=== PATIENT | female | born 1960 | race Caucasian/White ===

== ENCOUNTER 2017-10-27 22:48 | Emergency (ER) | payer SELFPAY ==
[2017-10-28] MEDS ORDERED: NORMAL SALINE 1000 ML 1,000 ML IV ONE
[2017-10-28] MEDS ORDERED: LORAZEPAM 0.5 MG TABLET PO ONE
--- NOTE | 2017-10-28 00:03 | ER Document Report ---
ED General - General Chief Complaint: Chest Pain Stated Complaint: HEART RACING Time Seen by Provider: 10/27/17 23:48 Mode of Arrival: Ambulatory Information source: Patient, Relative, [facility] Records Notes: 57-year-old female with emphysema, osteoporosis presents with complaint of palpitations that started 22 hours prior to arrival. Patient states that she has not slept in approximately 48 hours. She states that she realized at 1 AM that she was still up and needs to be at work in 4 hours so she remained awake. She states this evening when she tried to go to bed she felt very anxious, paranoid and felt her heart racing. She denies any associated headache, blurred vision, slurred speech, chest pain. Patient admits to shortness of breath and nonproductive cough which is chronic for her and not worse than her baseline. She denies any recent illness, new medications. Patient does have a 40 year pack history but denies any alcohol or drug abuse. Patient denies recent travel, estrogen use, recent surgery, history of DVT or PE. TRAVEL OUTSIDE OF THE [place] IN LAST 30 DAYS: No - HPI Onset: Yesterday Onset/Duration: Sudden Quality of pain: No pain Associated symptoms: Nonproductive cough. denies: Body/muscle aches, Chest pain , Fever, Hurts to breath, Nausea, Vomiting, Shortness of breath Exacerbated by: Denies Relieved by: Denies Similar symptoms previously: No Recently seen / treated by doctor: No - Related Data Allergies/Adverse Reactions: No Known Allergies Allergy (Verified 01/13/15 12:42) Past Medical History - General Information source: Patient, [facility] Records - Social History Smoking Status: Current Every Day Smoker Cigarette use (# per day): Yes - 20 Chew tobacco use (# tins/day): No Smoking Education Provided: Yes - Patient was provided for maintenance of counseling for smoking cessation. Frequency of alcohol use: None Drug Abuse: None Lives with: Alone Family History: Reviewed & Not Pertinent Patient has suicidal ideation: No Patient has homicidal ideation: No Pulmonary Medical History: Reports: Hx COPD Renal/ Medical History: Denies: Hx Peritoneal Dialysis Musculoskeletal Medical History: Reports Hx Arthritis - osteoporosis Past Surgical History: Reports: Hx Tubal Ligation - Immunizations Hx Diphtheria, Pertussis, Tetanus Vaccination: Yes Review of Systems - Review of Systems Notes: REVIEW OF SYSTEMS: CONSTITUTIONAL : Denies fever, chills, or sweats. Denies recent illness. Denies weight loss, recent hospitalizations. EENT: Denies visual changes, eye pain. Denies nasal or sinus congestion or discharge. Denies sore throat, oral lesions, difficulty swallowing. CARDIOVASCULAR: Denies chest pain. Denies lower extremity edema. RESPIRATORY: Denies cough, cold, or chest congestion. Denies shortness of breath, wheezing. GASTROINTESTINAL: Denies abdominal pain or distention. Denies nausea, vomiting , or diarrhea. Denies blood in vomitus, stools, or per rectum. Denies black, tarry stools. Denies constipation. GENITOURINARY: Denies difficulty urinating, painful urination, frequency, blood in urine, or vaginal discharge. MUSCULOSKELETAL: Denies back or neck pain or stiffness. Denies joint pain or swelling. SKIN: Denies rash, lesions or sores. HEMATOLOGIC : Denies easy bruising or bleeding. LYMPHATIC: Denies swollen glands. NEUROLOGICAL: Denies confusion or altered mental status. Denies passing out or loss of consciousness. Denies dizziness or lightheadedness. Denies headache. Denies weakness or paralysis. Denies problems difficulty with ambulation, slurred speech. Denies sensory loss, numbness, or tingling. Denies seizures. PSYCHIATRIC: Denies anxiety or stress. Denies depression, suicidal ideation, or homicidal ideation. Denies visual or auditory hallucinations. Physical Exam - Vital signs Vitals: Temp Pulse Resp BP Pulse Ox 97.7 F 104 H 18 129/82 H 94 10/27/17 23:00 10/27/17 23:00 10/27/17 23:00 10/27/17 23:00 10/27/17 23:00 - Notes Notes: PHYSICAL EXAMINATION: GENERAL: Well-appearing, well-nourished and in no acute distress. HEAD: Atraumatic, normocephalic. EYES: Pupils equal round and reactive to light, extraocular movements intact, conjunctiva are normal. ENT: Nares patent, oropharynx clear without exudates. Moist mucous membranes. NECK: Normal range of motion, supple without lymphadenopathy LUNGS: Breath sounds clear to auscultation bilaterally and equal. No wheezes rales or rhonchi. HEART: Regular rate and rhythm without murmurs ABDOMEN: Soft, nontender, nondistended abdomen. No guarding, no rebound. No masses appreciated. Female : deferred Musculoskeletal: Normal range of motion, no pitting or edema. No cyanosis. NEUROLOGICAL: Cranial nerves grossly intact. Normal speech, normal gait. Normal sensory, motor exams PSYCH: Normal mood, normal affect. SKIN: Warm, Dry, normal turgor, no rashes or lesions noted. Course - Re-evaluation Re-evalutation: 10/28/17 01:22 Laboratory 10/28/17 10/28/17 10/28/17 00:26 00:26 00:26 WBC 10.3 RBC 5.61 H Hgb 16.2 H Hct 47.7 H MCV 85 MCH 28.9 MCHC 34.0 RDW 13.8 Plt Count 195 Seg Neutrophils % 76.6 Lymphocytes % 16.8 Monocytes % 5.6 Eosinophils % 0.7 Basophils % 0.3 Absolute Neutrophils 7.9 Absolute Lymphocytes 1.7 Absolute Monocytes 0.6 Absolute Eosinophils 0.1 Absolute Basophils 0.0 D-Dimer 0.37 Sodium 146.4 H Potassium 3.9 Chloride 107 Carbon Dioxide 27 Anion Gap 12 BUN 10 Creatinine 0.71 Est GFR ( Amer) > 60 Est GFR (Non-Af Amer) > 60 Glucose 105 Calcium 10.0 Phosphorus 3.5 Magnesium 2.0 Total Bilirubin 0.5 Direct Bilirubin 0.3 Neonat Total Bilirubin Not Reportable Neonat Direct Bilirubin Not Reportable Neonat Indirect Bili Not Reportable AST 19 ALT 26 Alkaline Phosphatase 100 Troponin I Total Protein 8.1 Albumin 4.8 Urine Color Urine Appearance Urine pH Ur Specific [place] Urine Protein Urine Glucose (UA) Urine Ketones Urine Blood Urine Nitrite Urine Bilirubin Urine Urobilinogen Ur Leukocyte Esterase Urine WBC (Auto) Urine RBC (Auto) Urine Bacteria (Auto) Squamous Epi Cells Auto Urine Mucus (Auto) Urine Ascorbic Acid 10/28/17 10/28/17 00:26 00:26 WBC RBC Hgb Hct MCV MCH MCHC RDW Plt Count Seg Neutrophils % Lymphocytes % Monocytes % Eosinophils % Basophils % Absolute Neutrophils Absolute Lymphocytes Absolute Monocytes Absolute Eosinophils Absolute Basophils D-Dimer Sodium Potassium Chloride Carbon Dioxide Anion Gap BUN Creatinine Est GFR ( Amer) Est GFR (Non-Af Amer) Glucose Calcium Phosphorus Magnesium Total Bilirubin Direct Bilirubin Neonat Total Bilirubin Neonat Direct Bilirubin Neonat Indirect Bili AST ALT Alkaline Phosphatase Troponin I < 0.012 Total Protein Albumin Urine Color STRAW Urine Appearance CLEAR Urine pH 6.0 Ur Specific [place] 1.003 Urine Protein NEGATIVE Urine Glucose (UA) NEGATIVE Urine Ketones NEGATIVE Urine Blood MODERATE H Urine Nitrite NEGATIVE Urine Bilirubin NEGATIVE Urine Urobilinogen NEGATIVE Ur Leukocyte Esterase TRACE H Urine WBC (Auto) 2 Urine RBC (Auto) 1 Urine Bacteria (Auto) TRACE Squamous Epi Cells Auto 2 Urine Mucus (Auto) OCC Urine Ascorbic Acid NEGATIVE 57-year-old female with emphysema, osteoporosis presents with complaint of palpitations that started 22 hours prior to arrival. Patient states that she has not slept in approximately 48 hours. She states that she realized at 1 AM that she was still up and needs to be at work in 4 hours so she remained awake. She states this evening when she tried to go to bed she felt very anxious, paranoid and felt her heart racing. She denies any associated headache, blurred vision, slurred speech, chest pain. Patient was seen by myself upon arrival. Vital signs were reviewed. Patient is afebrile, normotensive and not hypoxic. She is mildly tachycardic. Patient does not appear toxic or dehydrated. They are in no acute distress. Previous medical records and nursing notes reviewed. Significant findings include urinalysis with moderate blood. 10/28/17 01:31 On reevaluation patient reports that an improvement in her anxiety, palpitations. I did discuss the findings of blood in her urine and she states that she does have a history of hematuria and recurrent UTIs although she does have no urinary symptoms at this time. Patient received IV fluids, 0.5 mg of Ativan during her ED course. CBC is without leukocytosis or anemia. Opponent and d-dimer within normal limits. Urinalysis consistent with hematuria, questionable UTI. Urine culture pending. Will provide patient a prescription for Bactrim and I have asked her to hold onto this and not take it unless we call her with a positive culture result. Daughter is at the bedside and will be taking the patient home and staying with her tonight. Patient provided the opportunity to ask questions, and express concerns. Discharge instructions discussed. Patient is agreeable with discharge home. Return indications explained and discussed with the patient who displays understanding. Patient encouraged to return to the emergency department immediately with any concerns. 10/28/17 01:45 - Vital Signs Vital signs: Temp Pulse Resp BP Pulse Ox 98.1 F 104 H 19 112/78 96 10/28/17 01:44 10/27/17 23:00 10/28/17 01:01 10/28/17 01:01 10/28/17 01:01 - Laboratory Result Diagrams: 10/28/17 00:26 10/28/17 00:26 Laboratory results interpreted by me: 10/28/17 10/28/17 10/28/17 00:26 00:26 00:26 RBC 5.61 H Hgb 16.2 H Hct 47.7 H Sodium 146.4 H Urine Blood MODERATE H Ur Leukocyte Esterase TRACE H - Diagnostic Test Radiology reviewed: Image reviewed, Reports reviewed - EKG Interpretation by Me EKG shows normal: Sinus rhythm Rate: Tachycardia Rhythm: NSR When compared to previous EKG there are: No significant change Discharge - Discharge Clinical Impression: Anxiety Insomnia Qualifiers: Insomnia type: other insomnia Qualified Code(s): G47.09 - Other insomnia Hematuria Qualifiers: Hematuria type: gross Qualified Code(s): R31.0 - Gross hematuria Condition: Good Disposition: HOME, SELF-CARE Instructions: Chronic Obstructive Lung Disease ([facility]), Hematuria ([facility]), Insomnia ([facility]), Palpitations (Irregular or Rapid Heartrate) ([facility]), Stop Smoking ([facility]) Additional Instructions: Follow up with your physician tomorrow for further care or return to the ED IMMEDIATELY if symptoms worsen or new concerns occur. If you cannot afford to follow up with your primary care physician a list of low cost clinics have been provided at the end of your discharge papers as well. Prescriptions: Sulfamethoxazole/Trimethoprim [Bactrim 400-80 mg Tablet] 1 each PO BID #6 tablet Forms: Smoking Cessation Education, Return to Work
--- NOTE | 2017-10-28 00:35 | RADIOLOGY REPORT (SQ) ---
CXR Clinical History: 57-year-old with palpitations. Comparison: None. Technique: 2 view of the chest submitted for review. Findings: The lungs are hyperaerated with increased retrosternal airspace and flattening of the hemidiaphragms. The cardiac silhouette measures within normal. Pulmonary vascularity is unremarkable. Osseous structures are normal for age. Impression: Pulmonary hyperinflation. No acute intrathoracic abnormality.
[2017-10-28 00:45] LABS: ABSOLUTE EOSINOPHILS # (AUTO) 0.1 10^3/uL (0.0-0.6); ABSOLUTE LYMPHOCYTES (AUTO) 1.7 10^3/uL (0.5-4.7); ABSOLUTE MONOCYTES (AUTO) 0.6 10^3/uL (0.1-1.4); ABSOLUTE NEUT (AUTO) 7.9 10^3/uL (1.7-8.2); BASOPHILS % (AUTO) 0.3 % (0-2); EOSINOPHILS % (AUTO) 0.7 % (0-6); HEMATOCRIT 47.7 % (36.0-47.0); HEMOGLOBIN 16.2 g/dL (12.0-15.5); LYMPHOCYTES % (AUTO) 16.8 % (13-45); MEAN CORPUSCULAR HEMOGLOBIN 28.9 pg (27.0-33.4); MEAN CORPUSCULAR VOLUME 85 fl (80-97); MONOCYTES % (AUTO) 5.6 % (3-13); PLATELET COUNT 195 10^3/uL (150-450); RED BLOOD COUNT 5.61 10^6/uL (3.72-5.28); RED CELL DISTRIBUTION WIDTH 13.8 % (11.5-14.0); SEGMENTED NEUTROPHILS % (AUTO) 76.6 % (42-78); TOTAL CELLS COUNTED % (AUTO) 100 %; WHITE BLOOD COUNT 10.3 10^3/uL (4.0-10.5)
[2017-10-28 00:47] LABS: APPEARANCE,URINE CLEAR; BILIRUBIN,URINE NEGATIVE (NEGATIVE); COLOR,URINE STRAW; GLUCOSE, URINE NEGATIVE (NEGATIVE); KETONES,URINE NEGATIVE (NEGATIVE); LEUKOCYTE ESTERASE,URINE TRACE (NEGATIVE); NITRITE,URINE NEGATIVE (NEGATIVE); PROTEIN,URINE NEGATIVE (NEGATIVE); URINE SPECIFIC GRAVITY 1.003; UROBILINOGEN,URINE NEGATIVE mg/dL (<2.0)
[2017-10-28 01:02] LABS: ALANINE AMINOTRANSFERASE 26 U/L (9-52); ALBUMIN 4.8 g/dL (3.5-5.0); ALKALINE PHOSPHATASE 100 U/L (38-126); ANION GAP 12 (5-19); ASPARTATE AMINO TRANSFERASE 19 U/L (14-36); BILIRUBIN,DIRECT 0.3 mg/dL (0.0-0.4); BILIRUBIN,TOTAL 0.5 mg/dL (0.2-1.3); BLOOD UREA NITROGEN 10 mg/dL (7-20); CARBON DIOXIDE 27 mmol/L (22-30); CHLORIDE 107 mmol/L (98-107); GLUCOSE 105 mg/dL (75-110); PHOSPHORUS 3.5 mg/dL (2.5-4.5); POTASSIUM 3.9 mmol/L (3.6-5.0); SODIUM 146.4 mmol/L (137-145); TOTAL PROTEIN 8.1 g/dL (6.3-8.2)
[2017-10-28 01:54] VITALS: BP 110/67
--- NOTE | 2017-10-28 09:25 | EKG REPORT ---
SEVERITY:- OTHERWISE NORMAL ECG - SINUS TACHYCARDIA : Confirmed by: Juan Mujica 28-Oct-2017 09:25:04
== END 2017-10-28 01:45 | disposition home or self-care (01) ==
LOC: ER 22:48
DX: F41.9 Anxiety disorder, unspecified (principal); G47.00 Insomnia, unspecified; R31.0 Gross hematuria; J43.9 Emphysema, unspecified; R00.2 Palpitations; R00.0 Tachycardia, unspecified; R05 Cough; F17.210 Nicotine dependence, cigarettes, uncomplicated; Z87.440 Personal history of urinary (tract) infections
CPT/HCPCS: 93005; 99285; 96360; 36415; 87086; 83735; 84100; 85025; 80053; 81001; 84484; 85379; 71046; 93010; J7030

== ENCOUNTER 2018-04-14 19:05 | Emergency (ER) | payer SELFPAY ==
[2018-04-14 19:38] VITALS: BP 126/78
--- NOTE | 2018-04-14 20:21 | ER Document Report ---
ED Medical Screen (RME) - General Chief Complaint: Headache Stated Complaint: HEADACHE Time Seen by Provider: 04/14/18 20:20 TRAVEL OUTSIDE OF THE [place] IN LAST 30 DAYS: No - Related Data Allergies/Adverse Reactions: No Known Allergies Allergy (Verified 01/13/15 12:42) Past Medical History - Social History Drug Abuse: None Pulmonary Medical History: Reports: Hx COPD Renal/ Medical History: Denies: Hx Peritoneal Dialysis Musculoskeltal Medical History: Reports Hx Arthritis - osteoporosis Past Surgical History: Reports: Hx Tubal Ligation - Immunizations Hx Diphtheria, Pertussis, Tetanus Vaccination: Yes Physical Exam - Vital signs Vitals: Temp Pulse Resp BP Pulse Ox 97.6 F 84 18 126/78 H 98 04/14/18 19:37 04/14/18 19:37 04/14/18 19:37 04/14/18 19:37 04/14/18 19:37 Course - Vital Signs Vital signs: Temp Pulse Resp BP Pulse Ox 97.6 F 84 18 126/78 H 98 04/14/18 19:37 04/14/18 19:37 04/14/18 19:37 04/14/18 19:37 04/14/18 19:37
[2018-04-14] MEDS ORDERED: HYDROCODONE/ACETAMINOPHEN 5-325 MG TABLET PO ONE (20:31)
[2018-04-14] MEDS ORDERED: IBUPROFEN 600 MG TABLET PO ONE (20:31)
[2018-04-14] MEDS ORDERED: AMOXICILLIN TR/POT CLAVULANATE 500-125 MG TAB PO ONE (20:32)
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
[2018-04-14 21:10] LABS: A TYPE INFLUENZA AG NEGATIVE (NEGATIVE); B INFLUENZA AG NEGATIVE (NEGATIVE)
== END 2018-04-14 21:25 | disposition home or self-care (01) ==
LOC: ER 19:05
DX: J32.9 Chronic sinusitis, unspecified (principal); R51 Headache; R05 Cough; R50.9 Fever, unspecified; J44.9 Chronic obstructive pulmonary disease, unspecified; R09.81 Nasal congestion; J34.89 Other specified disorders of nose and nasal sinuses; Z87.891 Personal history of nicotine dependence
CPT/HCPCS: 87804; 99284

== ENCOUNTER 2019-01-24 09:03 | Emergency (ER) | payer SELFPAY ==
[2019-01-24] MEDS ORDERED: IBUPROFEN 600 MG TABLET PO ONE (10:37)
--- NOTE | 2019-01-24 10:58 | ER Document Report ---
HPI - HPI Time Seen by Provider: 01/24/19 10:32 Pain Level: 4 Context: Patient is a 58-year-old female presents to the emergency department with a chief complaint of left foot pain. Patient reports she has had left heel pain for a few weeks. Patient reports of the past few days is gotten worse. Patient denies injury or fall. Patient reports the pain is worse in the morning and does improve throughout the day. Patient reports she has been using heel inserts in her shoe without relief. - REPRODUCTIVE Reproductive: DENIES: : - MUSCULOSKELETAL Musculoskeletal: REPORTS: Extremity pain - left foot - DERM Skin Color: Normal Past Medical History - General Information source: Patient - Social History Smoking Status: Former Smoker Lives with: Family Family History: Reviewed & Not Pertinent Patient has suicidal ideation: No Patient has homicidal ideation: No - Past Medical History Cardiac Medical History: Reports: None Pulmonary Medical History: Reports: Hx COPD EENT Medical History: Reports: None Neurological Medical History: Reports: None Endocrine Medical History: Reports: None Renal/ Medical History: Reports: None. Denies: Hx Peritoneal Dialysis Malignancy Medical History: Reports: None GI Medical History: Reports: None Musculoskeletal Medical History: Reports Hx Arthritis - osteoporosis Skin Medical History: Reports None Psychiatric Medical History: Reports: None Traumatic Medical History: Reports: None Infectious Medical History: Reports: None Past Surgical History: Reports: Hx Tubal Ligation - Immunizations Hx Diphtheria, Pertussis, Tetanus Vaccination: Yes Vertical Provider Document - CONSTITUTIONAL Agree With Documented VS: Yes Exam Limitations: No Limitations General Appearance: No Apparent Distress - INFECTION CONTROL TRAVEL OUTSIDE OF THE [place] IN LAST 30 DAYS: No - HEENT HEENT: Atraumatic, Normocephalic, PERRLA - RESPIRATORY Respiratory: Breath Sounds Normal, No Respiratory Distress - CARDIOVASCULAR Cardiovascular: Regular Rate, Regular Rhythm - GI/ABDOMEN Gastrointestinal: Abdomen Soft, Abdomen Non-Tender, Normal Bowel Sounds - MUSCULOSKELETAL/EXTREMETIES Notes: No point tenderness noted to the calcaneus or plantar aspect of the left foot. Patient has a palpable +2 dorsalis pedis and posterior tibial pulse. There is no obvious erythema, edema or ecchymosis. Patient does not have any tenderness to the medial or lateral malleolus. No obvious deformity. - NEURO Level of Consciousness: Awake, Alert, Appropriate - DERM Integumentary: Warm, Dry Course - Vital Signs Vital signs: Temp Pulse Resp BP Pulse Ox 97.4 F 87 18 119/64 95 01/24/19 09:07 01/24/19 09:07 01/24/19 09:07 01/24/19 09:07 01/24/19 09:07 - Diagnostic Test Radiology reviewed: Reports reviewed Radiology results interpreted by me: 01/24/19 11:20 Foot X-Ray 01/24/19 10:37 IMPRESSION: Small Achilles and plantar enthesophytes. Discharge - Discharge Clinical Impression: Plantar fasciitis Heel pain Qualifiers: Laterality: left Qualified Code(s): M79.672 - Pain in left foot Condition: Stable Disposition: HOME, SELF-CARE Additional Instructions: Today your x-ray did show you have plantar enthesophytes (calcaneal spurs) - which can be caused by many things including injury, overuse such as running, poor fitting shoes or repetitive movements. This can be painful. The usual treatment for this is anti-inflammatories, icing of the foot, heel inserts, a good supportive shoe, rest, foot exercises. Sometimes if the pain is severe your primary care physician or an orthopedic can perform steroid injections. Plantar Fasciitis or Heel Spur Plantar fasciitis is an inflammation of a ligament on the underside of the foot. It can be caused by injury, overuse such as running, or poorly fitting shoes. There may be a bone spur on the heel if inflammation has persisted a long time. Plantar fasciitis is treated with stretching exercises and antiinflammatory medicine. More severe cases may require injection of cortisone. It may take several weeks to get better. If nothing gives relief, an operation to remove the heel spur may help. Call or return if there is redness, increasing pain, swelling, fever, or any other new symptoms.
--- NOTE | 2019-01-24 11:01 | RADIOLOGY REPORT (SQ) ---
EXAM DESCRIPTION: FOOT LEFT COMPLETE COMPLETED DATE/TIME: 01/24/2019 10:47 am REASON FOR STUDY: heel pain COMPARISON: None. NUMBER OF VIEWS: Three views. TECHNIQUE: AP, lateral and oblique without weight bearing radiographic images acquired of the left f oot. LIMITATIONS: None. FINDINGS: MINERALIZATION: Normal. BONES: No acute fracture or dislocation. No worrisome bone lesions. Small Achilles and plantar enthes ophytes. JOINTS: No erosions. No maria antonia-articular osteopenia. No chondrocalcinosis. SOFT TISSUES: No swelling. No calcifications. OTHER: No other significant finding. IMPRESSION: Small Achilles and plantar enthesophytes. TECHNICAL DOCUMENTATION: JOB ID: [id number] [employer]- All Rights Reserved Reading location - IP/workstation name: [email or web address]
[2019-01-24 11:26] VITALS: BP 116/63
== END 2019-01-24 11:24 | disposition home or self-care (01) ==
LOC: ER 09:03
DX: M72.2 Plantar fascial fibromatosis (principal); M79.672 Pain in left foot; J44.9 Chronic obstructive pulmonary disease, unspecified; Z98.51 Tubal ligation status
CPT/HCPCS: 99283

== ENCOUNTER 2019-03-04 14:42 | Emergency (ER) | payer SELFPAY ==
[2019-03-04] MEDS ORDERED: IPRATROPIUM/ALBUTEROL 0.5-2.5 MG/3 ML AMPUL NEB ONE (15:37)
--- NOTE | 2019-03-04 15:40 | ER Document Report ---
ED Medical Screen (RME) - General Chief Complaint: Productive Cough Stated Complaint: COUGH/CHEST CONJECTION/DIZZY Time Seen by Provider: 03/04/19 15:27 TRAVEL OUTSIDE OF THE [place] IN LAST 30 DAYS: No - HPI Notes: 03/04/19 15:38 59-year-old female with a history of COPD presents to the emergency room for new onset palpitations and dizziness that started today. Patient states that she has had a cough for the last month, has been productive, she has not had a checked out due to having health insurance. Patient denies being on any medications. Is a former smoker. Denies any fevers but does report chills, denies any chest pain or shortness of breath. Denies any nausea vomiting or diarrhea. I have greeted and performed a rapid initial assessment of this patient. A comprehensive ED assessment and evaluation of the patient, analysis of test results and completion of the medical decision making process will be conducted by additional ED providers. PHYSICAL EXAMINATION: GENERAL: Well-appearing, well-nourished and in no acute distress. HEAD: Atraumatic, normocephalic. EYES: Pupils equal round extraocular movements intact, conjunctiva are normal. ENT: Nares patent NECK: Normal range of motion LUNGS: wheezing throughout. No respiratory distress Musculoskeletal: Normal range of motion NEUROLOGICAL: Normal speech, normal gait. PSYCH: Normal mood, normal affect. SKIN: Warm, Dry, normal turgor, no rashes or lesions noted. 03/04/19 15:39 - Related Data Allergies/Adverse Reactions: No Known Allergies Allergy (Verified 01/24/19 09:22) Past Medical History - Social History Chew tobacco use (# tins/day): No Frequency of alcohol use: None Drug Abuse: None Pulmonary Medical History: Reports: Hx COPD Renal/ Medical History: Denies: Hx Peritoneal Dialysis Musculoskeltal Medical History: Reports Hx Arthritis - osteoporosis Past Surgical History: Reports: Hx Tubal Ligation - Immunizations Hx Diphtheria, Pertussis, Tetanus Vaccination: Yes Physical Exam - Vital signs Vitals: Temp Pulse Resp BP Pulse Ox 98.7 F 85 16 116/72 96 03/04/19 15:01 03/04/19 15:01 03/04/19 15:01 03/04/19 15:01 03/04/19 15:01 Course - Vital Signs Vital signs: Temp Pulse Resp BP Pulse Ox 98.7 F 85 16 116/72 96 03/04/19 15:30 03/04/19 15:30 03/04/19 15:30 03/04/19 15:30 03/04/19 15:30
[2019-03-04 16:21] LABS: ABSOLUTE BASOPHILS # (AUTO) 0.1 10^3/uL (0.0-0.2); ABSOLUTE EOSINOPHILS # (AUTO) 0.1 10^3/uL (0.0-0.6); ABSOLUTE LYMPHOCYTES (AUTO) 2.5 10^3/uL (0.5-4.7); ABSOLUTE MONOCYTES (AUTO) 0.9 10^3/uL (0.1-1.4); BASOPHILS % (AUTO) 0.9 % (0-2); EOSINOPHILS % (AUTO) 1.3 % (0-6); HEMATOCRIT 45.5 % (36.0-47.0); HEMOGLOBIN 15.3 g/dL (12.0-15.5); LYMPHOCYTES % (AUTO) 21.8 % (13-45); MEAN CORPUSCULAR HEMOGLOBIN 28.4 pg (27.0-33.4); MEAN CORPUSCULAR HGB CONC 33.7 g/dL (32.0-36.0); MEAN CORPUSCULAR VOLUME 84 fl (80-97); MONOCYTES % (AUTO) 7.6 % (3-13); PLATELET COUNT 215 10^3/uL (150-450); RED CELL DISTRIBUTION WIDTH 14.2 % (11.5-14.0); SEGMENTED NEUTROPHILS % (AUTO) 68.4 % (42-78); TOTAL CELLS COUNTED % (AUTO) 100 %; WHITE BLOOD COUNT 11.7 10^3/uL (4.0-10.5)
--- NOTE | 2019-03-04 16:28 | RADIOLOGY REPORT (SQ) ---
EXAM DESCRIPTION: CHEST 2 VIEWS COMPLETED DATE/TIME: 03/04/2019 4:13 pm REASON FOR STUDY: dizziness, palpitations, cough COMPARISON: 10/28/2017 EXAM PARAMETERS: NUMBER OF VIEWS: two views TECHNIQUE: Digital Frontal and Lateral radiographic views of the chest acquired. RADIATION DOSE: NA LIMITATIONS: none FINDINGS: LUNGS AND PLEURA: Somewhat linear opacification in the right middle lobe. MEDIASTINUM AND HILAR STRUCTURES: No masses or contour abnormalities. HEART AND VASCULAR STRUCTURES: Heart normal size. No evidence for failure. BONES: No acute findings. HARDWARE: None in the chest. OTHER: No other significant finding. IMPRESSION: Right middle lobe pneumonia versus atelectasis. TECHNICAL DOCUMENTATION: JOB ID: [id number] [employer]- All Rights Reserved Reading location - IP/workstation name: [email or web address]
[2019-03-04 16:45] LABS: ALBUMIN 4.5 g/dL (3.5-5.0); ALKALINE PHOSPHATASE 98 U/L (38-126); ANION GAP 9 (5-19); ASPARTATE AMINO TRANSFERASE 24 U/L (14-36); BILIRUBIN,DIRECT 0.1 mg/dL (0.0-0.4); BILIRUBIN,TOTAL 0.6 mg/dL (0.2-1.3); BLOOD UREA NITROGEN 8 mg/dL (7-20); CARBON DIOXIDE 27 mmol/L (22-30); CHLORIDE 105 mmol/L (98-107); GLUCOSE 95 mg/dL (75-110); POTASSIUM 3.8 mmol/L (3.6-5.0); TOTAL PROTEIN 7.7 g/dL (6.3-8.2)
--- NOTE | 2019-03-04 19:16 | EKG REPORT ---
SEVERITY:- OTHERWISE NORMAL ECG - SINUS RHYTHM ATRIAL PREMATURE COMPLEX : Confirmed by: Adriana Saleh MD 04-Mar-2019 19:13:58
[2019-03-04] MEDS ORDERED: LIDOCAINE 1% INJ-PF (10 MG/ML) 30 ML SDV INJ ONE (20:24)
[2019-03-04] MEDS ORDERED: CEFTRIAXONE INJ 1000 MG VIAL IM ONE (20:24)
[2019-03-04] MEDS ORDERED: AZITHROMYCIN 250 MG TABLET PO ONE (20:24)
[2019-03-04] MEDS ORDERED: ALBUTEROL SULFATE HFA (90 MCG/PUFF) 8 GM MDI (1 MDI/ER DISP) IH ONE (20:25)
--- NOTE | 2019-03-04 20:30 | ER Document Report ---
ED Respiratory Problem - General Chief Complaint: Productive Cough Stated Complaint: COUGH/CHEST CONJECTION/DIZZY Time Seen by Provider: 03/04/19 15:27 Notes: Patient is a 59-year-old female that comes to the emergency department for chief complaint of worsening cough for the past month, shortness of breath, intermittent wheezes. She reports occasionally she will feel lightheaded with the cough. She denies chest pain outside of the cough. She denies fever. She states initially this started as congestion about a month ago, developed into a cough, and then developed into her current symptoms. She states she quit smoking 1.5 years ago, she was told she has COPD, she is not on home oxygen, she has no home medications, she denies any other diagnosis. She currently does not see a primary care. TRAVEL OUTSIDE OF THE [place] IN LAST 30 DAYS: No - Related Data Allergies/Adverse Reactions: No Known Allergies Allergy (Verified 01/24/19 09:22) Past Medical History - General Information source: Patient - Social History Smoking Status: Former Smoker Chew tobacco use (# tins/day): No Frequency of alcohol use: None Drug Abuse: None Lives with: Family Family History: Reviewed & Not Pertinent Patient has suicidal ideation: No Patient has homicidal ideation: No Pulmonary Medical History: Reports: Hx COPD Renal/ Medical History: Denies: Hx Peritoneal Dialysis Musculoskeletal Medical History: Reports Hx Arthritis - osteoporosis Past Surgical History: Reports: Hx Tubal Ligation - Immunizations Hx Diphtheria, Pertussis, Tetanus Vaccination: Yes Review of Systems - Review of Systems Constitutional: No symptoms reported EENT: No symptoms reported Cardiovascular: No symptoms reported Respiratory: See HPI Gastrointestinal: No symptoms reported Genitourinary: No symptoms reported Female Genitourinary: No symptoms reported Musculoskeletal: No symptoms reported Skin: No symptoms reported Hematologic/Lymphatic: No symptoms reported Neurological/Psychological: No symptoms reported Physical Exam - Vital signs Vitals: Temp Pulse Resp BP Pulse Ox 98.7 F 85 16 116/72 96 03/04/19 15:01 03/04/19 15:01 03/04/19 15:01 03/04/19 15:01 03/04/19 15:01 - Notes Notes: GENERAL: Alert, interacts well. No acute distress. HEAD: Normocephalic, atraumatic. EYES: Pupils equal, round, and reactive to light. Extraocular movements intact. ENT: Oral mucosa moist, tongue midline. Oropharynx unremarkable. Airway patent. NECK: Full range of motion. Supple. Trachea midline. LUNGS: Slightly diminished bilaterally, no overt wheezes, rales, rhonchi. No tachypnea, occasional mild cough. HEART: Regular rate and rhythm. No murmur ABDOMEN: Soft, non-tender. Non-distended. EXTREMITIES: Moves all 4 extremities spontaneously. No edema, normal radial and dorsalis pedis pulses bilaterally. No cyanosis. BACK: no cervical, thoracic, lumbar midline tenderness. No saddle anesthesia, normal distal neurovascular exam. Moves all extremities in full range of motion. NEUROLOGICAL: Alert and oriented x3. Normal speech. Cranial nerves II through XII grossly intact. PSYCH: Normal affect, normal mood. SKIN: Warm, dry, normal turgor. No rashes or lesions noted. Course - Re-evaluation Re-evalutation: 03/04/19 20:27 Immediately when I entered the room patient requested to leave. She states she has been here too long and she would like to be discharged. Patient does have clear lungs, she is conversational, alert, she did calm down and allow me to e xamine her. She is mildly tachycardic, she states that she only became this way when she had the breathing treatment and she states " I always get a fast heart rate when I get a breathing treatment". Oxygen saturation 96% on room air. No signs of distress. CBC shows mild leukocytosis at 11,000, no bandemia. Chemistry unremarkable, troponin negative, EKG without acute findings. Chest x- ray does indicate right middle lobe pneumonia. I discussed with patient. Patient requesting inexpensive medication. Patient does agree to IM Rocephin, azithromycin now and at home, albuterol from here for home, and she does agree to follow-up with primary care. She also agrees to return if she worsens in any way. Patient does state appreciation and agreement with plan. - Vital Signs Vital signs: Temp Pulse Resp BP Pulse Ox 98.8 F 101 H 18 128/82 H 96 03/04/19 21:50 03/04/19 21:50 03/04/19 21:50 03/04/19 21:50 03/04/19 21:50 - Laboratory Result Diagrams: 03/04/19 16:03 03/04/19 16:03 Laboratory results interpreted by me: 12/05/19 16:03 WBC 11.7 H RBC 5.40 H RDW 14.2 H Discharge - Discharge Clinical Impression: Cough Pneumonia Qualifiers: Pneumonia type: due to unspecified organism Laterality: right Lung location: middle lobe of lung Qualified Code(s): J18.9 - Pneumonia, unspecified organism Condition: Stable Disposition: HOME, SELF-CARE Additional Instructions: Your work-up indicates a pneumonia in the right middle lobe. Take the antibiotics, drink plenty fluids, and rest. Use the albuterol inhaler as prescribed. Follow-up with the primary care provider referral for additional evaluation and management. Return if you worsen including developing fever, difficulty breathing, or any other concerning or worsening symptoms. Prescriptions: Azithromycin [Zithromax 250 mg Tablet] 250 mg PO ASDIR PRN #4 tablet PRN Reason: Forms: Return to Work
[2019-03-04 21:52] VITALS: BP 128/82
== END 2019-03-04 21:50 | disposition home or self-care (01) ==
LOC: ER 14:42
DX: J18.9 Pneumonia, unspecified organism (principal); J44.0 Chronic obstructive pulmonary disease with (acute) lower respiratory infection; R05 Cough; R42 Dizziness and giddiness; R00.0 Tachycardia, unspecified; R06.02 Shortness of breath; Z87.891 Personal history of nicotine dependence
CPT/HCPCS: 93005; 94640; 99284; 96372; 36415; 85025; 80053; 84484; 71046; 93010; J3490 ×2; J0696; J7620